=== PATIENT | male | born 1970 | race African-American/Black ===

== ENCOUNTER 2018-09-18 14:16 | Emergency (ER) | payer BC, MEDICARE ==
[~2018-09-18] VITALS: Ht 175.3 cm; Wt 72.7 kg
[2018-09-18] MEDS ORDERED: PredniSONE 20 MG TABLET PO ONE (17:00)
[2018-09-18] MEDS ORDERED: HYDROCODONE/ACETAMINOPHEN 5-325 MG TABLET PO ONE (17:00)
[2018-09-18 17:27] VITALS: BP 150/93
== END 2018-09-18 17:39 | disposition home or self-care (01) ==
LOC: EMS 14:18
DX: M54.31 Sciatica, right side (principal); M79.604 Pain in right leg
CPT/HCPCS: 99283; J7512